=== PATIENT | female | born 1975 | race Caucasian/White ===

== ENCOUNTER 2023-03-29 16:18 | Outpatient (CLI) | payer BC, SELFPAY ==
[2023-03-29 16:34] LABS: Chloride 105 mmol/L (98-107); Potassium 4.3 mmoL/L (3.5-5.1); Sodium 138 mmol/L (136-145)
[2023-03-29 16:36] LABS: Alanine Aminotransferase 18 U/L (12-78); Aspartate Amino Transferase 25 U/L (14-36); Blood Urea Nitrogen 13 mg/dl (7-17); Estimated Glomerular Filt Rate 108 ml/min (>60); GFR (African American) 131 ML/MIN (>60)
[2023-03-29 16:37] LABS: Albumin Level 3.9 g/dl (3.5-5.0); Albumin/Globulin Ratio 1.3 (1.1-1.8); Alkaline Phosphatase 74 U/L (38-126); Anion Gap 11.3 mEq/L (5-15); Bilirubin,Total 0.7 mg/dl (0.2-1.3); Carbon Dioxide 26 mmol/L (22.0-30.0); Chol/HDL Ratio 3.9 (1-3.5); Cholesterol 178 mg/dl (140-200); Globulin 3.1 g/dL (1.3-3.2); Glucose 96 mg/dl (74-100); HDL Cholesterol 46 mg/dl (40-60); Triglycerides 115 mg/dl (30-150); VLDL Cholesterol 23 mg/dL (0-40)
[2023-03-29 16:43] LABS: Basophils % 0.4 % (0.1-2.0); Eosinophils # 0.1 K/mm3 (0.0-0.4); Eosinophils % 0.7 % (0.1-12.0); Hematocrit 34.6 % (37.0-47.0); Hemoglobin 11.9 g/dL (12.2-16.2); Lymphocytes # 3.4 K/mm3 (0.7-4.5); Lymphocytes % 30.2 % (10-50); Mean Corpuscular HGB Conc 34.4 g/dL (31.8-35.4); Mean Corpuscular Hemoglobin 29.5 pg (27.0-31.2); Mean Corpuscular Volume 85.9 fl (81-99); Mean Platelet Volume 8.8 fl (7.4-10.4); Monocytes # 0.5 K/mm3 (0.1-1.0); Monocytes % 4.1 % (1.7-9.3); Neutrophils # 7.2 K/mm3 (1.8-7.8); Neutrophils % 64.5 % (37.0-80.0); Platelet Count 331 K/mm3 (142-424); Red Blood Count 4.03 M/mm3 (4.20-5.40); Red Cell Distribution Width 13.7 % (11.5-17.5); White Blood Count 11.1 K/mm3 (4.8-10.8)
[2023-03-29 17:00] LABS: Triiodothryronine (T3) Uptake 34 % (23.5-40.5)
[2023-03-29 17:01] LABS: T4 (Thyroxine) 10.1 ug/dl (5.53-11.0)
[2023-03-29 18:00] LABS: Free T4 (Free Thyroxine) 1.64 ng/dl (0.78-2.19)
[2023-03-29 20:17] LABS: Hemoglobin A1C 5.3 % (4.0-6.0)
== END 2023-03-29 23:59 ==
LOC: LAB.DROPOF 16:19
PROVIDERS: PCP Nurse Practitioner Family; Visit Provider Nurse Practitioner Family
DX: E66.01 Morbid (severe) obesity due to excess calories (principal); Z68.43 Body mass index [BMI] 50.0-59.9, adult; R06.09 Other forms of dyspnea; Z86.79 Personal history of other diseases of the circulatory system
CPT/HCPCS: 80053; 80061; 83036; 84436; 84439; 84443; 84479; 85025

== ENCOUNTER 2023-05-06 09:56 | Outpatient (CLI) | payer BC, SELFPAY ==
--- NOTE | 2023-05-06 10:01 | MM_ITS ---
PROCEDURE INFORMATION: Exam: Bilateral Screening 3D Mammography Exam date and time: 05/06/2023 10:03 AM Age: 47 years old Clinical indication: Baseline screening mammogram TECHNIQUE: Imaging protocol: Bilateral Screening tomosynthesis and 2D mammography including computer-aided detection (CAD) when performed. COMPARISON: No relevant prior studies available. FINDINGS: MAMMOGRAPHY: Breast composition: There are scattered areas of fibroglandular density. Mass: 0.4 cm mass within the lower outer left middle 1/3 should be further assessed with spot views in CC/MLO projection. Ultrasound should also be performed. Architectural distortion: No new or suspicious architectural distortion. Calcifications: No new or suspicious calcifications are present Asymmetric density: No new or suspicious asymmetric density is present Skin thickening: None. Axillary adenopathy: None. IMPRESSION: 0.4 cm mass within the lower outer left middle 1/3 should be further assessed with spot views in CC/MLO projection. Ultrasound should also be performed. ASSESSMENT: BI-RADS category 0: Incomplete-need additional imaging evaluation
== END 2023-05-06 23:59 ==
LOC: RAD 09:56
PROVIDERS: PCP Nurse Practitioner Family; Visit Provider Nurse Practitioner Family
DX: Z12.31 Encounter for screening mammogram for malignant neoplasm of breast (principal)
CPT/HCPCS: 77063; 77067

== ENCOUNTER 2023-05-17 13:58 | Outpatient (CLI) | payer BC, SELFPAY ==
--- NOTE | 2023-05-17 13:59 | MM_ITS ---
PROCEDURE INFORMATION: Exam: US Left Breast, Complete MG Left Diagnostic Breast Tomosynthesis Exam date and time: 05/17/2023 1:53 PM Age: 47 years old Clinical indication: Patient recalled on the basis of a screening mammogram for further evaluation; Left breast; mass TECHNIQUE: Imaging protocol: Complete ultrasound of all four quadrants of the left breast and the retroareolar regions, including ultrasound of the axilla when performed. Left Diagnostic tomosynthesis and 2D mammography including computer-aided detection (CAD) when performed. Unilateral or bilateral exam. COMPARISON: MG MM DIG SCREENING MAMM BI W/CAD 05/06/2023 10:03 AM FINDINGS: MAMMOGRAPHY: Digital diagnostic spot compression views of the middle third of the left lower outer quadrant demonstrates a persistent 0.4 cm ovoid mass without associated distortion ULTRASOUND: Sonographic images of the left breast including the retroareolar region, all 4 quadrants and the axilla do not demonstrate any solid masses. 0.4 cm cyst in the 4 o'clock axis 4 cm from the nipple most closely corresponds to the mass on mammography. An additional 0.4 cm cyst is noted in the 5 o'clock axis 4 cm from the. No architectural distortion or acoustical shadowing. No skin thickening or axillary adenopathy. IMPRESSION: Mass on screening mammography corresponds to underlying cystic change sonographically. There is no mammographic evidence of malignancy.Annual bilateral mammographic screening is recommended unless otherwise clinically indicated. ASSESSMENT: BI-RADS Category 2: Benign.
== END 2023-05-17 23:59 ==
LOC: RAD 13:59
PROVIDERS: PCP Nurse Practitioner Family; Visit Provider Nurse Practitioner Family
DX: R92.8 Other abnormal and inconclusive findings on diagnostic imaging of breast (principal); N63.20 Unspecified lump in the left breast, unspecified quadrant
CPT/HCPCS: 76641; 77061; 77065; G0279

== ENCOUNTER 2023-10-18 10:40 | Outpatient (CLI) | payer BC, SELFPAY ==
[2023-10-18 16:34] LABS: Basophils % 0.4 % (0.1-2.0); Eosinophils % 0.4 % (0.1-12.0); Hematocrit 37.1 % (37.0-47.0); Hemoglobin 12.4 g/dL (12.2-16.2); Lymphocytes # 2.2 K/mm3 (0.7-4.5); Lymphocytes % 24.7 % (10-50); Mean Corpuscular HGB Conc 33.4 g/dL (31.8-35.4); Mean Corpuscular Hemoglobin 29.8 pg (27.0-31.2); Mean Corpuscular Volume 89.4 fl (81-99); Mean Platelet Volume 9.4 fl (7.4-10.4); Monocytes # 0.4 K/mm3 (0.1-1.0); Monocytes % 4.2 % (1.7-9.3); Neutrophils # 6.2 K/mm3 (1.8-7.8); Neutrophils % 70.3 % (37.0-80.0); Platelet Count 264 K/mm3 (142-424); Red Blood Count 4.15 M/mm3 (4.20-5.40); Red Cell Distribution Width 14.2 % (11.5-17.5); White Blood Count 8.8 K/mm3 (4.8-10.8)
[2023-10-18 17:21] LABS: Hemoglobin A1C 4.8 % (4.0-6.0)
[2023-10-18 17:26] LABS: Alanine Aminotransferase 17 U/L (12-78); Albumin Level 3.8 g/dl (3.5-5.0); Albumin/Globulin Ratio 1.2 (1.1-1.8); Alkaline Phosphatase 60 U/L (38-126); Anion Gap 11.6 mEq/L (5-15); Aspartate Amino Transferase 19 U/L (14-36); Bilirubin,Total 0.7 mg/dl (0.2-1.3); Blood Urea Nitrogen 17 mg/dl (7-17); Calcium 9.3 mg/dl (8.4-10.2); Carbon Dioxide 24 mmol/L (22.0-30.0); Chloride 110 mmol/L (98-107); Chol/HDL Ratio 3.6 (1-3.5); Cholesterol 174 mg/dl (140-200); Estimated Glomerular Filt Rate 133 ml/min (>60); GFR (African American) 161 ML/MIN (>60); Globulin 3.2 g/dL (1.3-3.2); Glucose 101 mg/dl (74-100); HDL Cholesterol 48 mg/dl (40-60); Potassium 3.6 mmoL/L (3.5-5.1); Sodium 142 mmol/L (136-145); Triglycerides 96 mg/dl (30-150); VLDL Cholesterol 19 mg/dL (0-40)
[2023-10-18 17:37] LABS: Direct LDL Cholesterol 90.99 mg/dL (100-129)
[2023-10-18 17:56] LABS: Thyroid Stimulating Hormone 1.31 uIU/mL (0.465-4.68)
== END 2023-10-18 23:59 | disposition home or self-care (01) ==
LOC: LAB.DROPOF 10-21 10:41
PROVIDERS: PCP Nurse Practitioner Family; Visit Provider Nurse Practitioner Family
DX: Z00.00 Encounter for general adult medical examination without abnormal findings (principal)
CPT/HCPCS: 80050; 80053; 80061; 83036; 84443; 85025

== ENCOUNTER 2024-07-27 15:11 | Outpatient (CLI) | payer BC, SELFPAY ==
[2024-07-27 15:39] LABS: Basophils % 0.3 % (0.1-2.0); Eosinophils # 0.1 Kmm3 (0.0-0.4); Eosinophils % 0.6 % (0.1-12.0); Hematocrit 32.7 % (37.0-47.0); Hemoglobin 11.1 g/dL (12.2-16.2); Immature Granulocytes # 0.04 10^3uL; Immature Granulocytes % 0.3 %; Lymphocytes # 3.1 K/mm3 (0.7-4.5); Lymphocytes % 26.5 % (10-50); Mean Corpuscular HGB Conc 33.9 g/dL (31.8-35.4); Mean Corpuscular Hemoglobin 30.8 pg (27.0-31.2); Mean Corpuscular Volume 90.8 fl (81-99); Mean Platelet Volume 9.8 fl (7.4-10.4); Monocytes # 0.6 K/mm3 (0.1-1.0); Monocytes % 5.4 % (1.7-9.3); Neutrophils # 7.9 K/mm3 (1.8-7.8); Neutrophils % 66.9 % (37.0-80.0); Nucleated Red Blood Cells # 0 10^3/uL; Nucleated Red Blood Cells % 0 %; Platelet Count 284 K/mm3 (142-424); Red Cell Distribution Width 12.5 % (11.5-17.5); Red Cell Distribution Width-SD 41.3 fL; White Blood Count 11.8 K/mm3 (4.8-10.8)
[2024-07-27 16:50] LABS: Thyroid Stimulating Hormone 1.31 uIU/mL (0.465-4.68)
[2024-07-28 08:12] LABS: Estradiol 9.4 pg/mL (.); FSH 6.5 mIU/mL (.); LH 4.3 mIU/mL (.); Progesterone <0.1 ng/mL (.)
== END 2024-07-27 23:59 | disposition home or self-care (01) ==
LOC: LAB 15:12
PROVIDERS: PCP Nurse Practitioner Family; Visit Provider Obstetrics & Gynecology
DX: N93.9 Abnormal uterine and vaginal bleeding, unspecified (principal); N95.1 Menopausal and female climacteric states; R61 Generalized hyperhidrosis
CPT/HCPCS: 36415; 82670; 83001; 83002; 84144; 84443; 85025

== ENCOUNTER 2024-08-05 14:54 | Outpatient (CLI) | payer BC, SELFPAY ==
--- NOTE | 2024-08-05 15:00 | US_ITS ---
PROCEDURE: US TRANSVAGINAL CLINICAL INDICATION: Needs for AUB COMPARISON: No exams were available for comparison FINDINGS: Transvaginal and transabdominal sonographic images of the pelvis were obtained. UTERUS: 11.6 cm x 8.3cmx 6.4cm anteverted with a combined endometrial thickness of 34.2mm. The basalis of the endometrium is irregular and there appear to be small tongues of endometrium into the myometrium. These tongues of endometrium are seen on images 5, 8, 16, 17, 55 There are 2 small nabothian cysts in the cervix. The largest measures 7.4 mm There are calcifications in the anterior uterus with posterior shadowing. LEFT OVARY: The left ovary is not visualized. There are 2 small cystic areas in the left adnexa that could be small hydatid of Morgagni measuring 1.1 cm and 0.8 cm respectively. RIGHT OVARY: Not visualized. Both ovaries are not visualized. There is no fluid in the cul-de-sac. IMPRESSION: 1. Anteverted, enlarged uterus. The endometrium is heterogenous and markedly thickened. There are irregular areas along the basalis of the endometrium. Within the anterior myometrium are calcifications with posterior shadowing. 2. The endometrium is suspicious for endometrial carcinoma or hyperplasia. Suggest endometrial sampling. 3. Left and right ovary were not visualized. Transabdominal approach was performed but the ovaries could not be seen. 4. There are 2 small, simple hypoechoic areas in the left adnexa that could be hydatid of Morgagni. 5. No fluid in the cul-de-sac. Dictated by: Gustabo Carroll MD 08/06/2024 07:07 Gustabo Carroll MD in OV 08/06/2024 07:07
== END 2024-08-05 23:59 | disposition home or self-care (01) ==
LOC: RAD 14:54
PROVIDERS: PCP Nurse Practitioner Family; Visit Provider Obstetrics & Gynecology
DX: N85.2 Hypertrophy of uterus (principal); N85.8 Other specified noninflammatory disorders of uterus; R93.89 Abnormal findings on diagnostic imaging of other specified body structures
CPT/HCPCS: 76830

== ENCOUNTER 2024-08-18 10:47 | Outpatient (CLI) | payer BC, SELFPAY ==
[2024-08-18 10:59] VITALS: BMI 38.0
--- NOTE | 2024-08-18 11:15 | ECG_ITS ---
APPROVED REPORT Exam: Resting ECG HR:70 bpm ECG Measurements Heart Rate 70 AXES WI 158 P 55 QRSd 93 QRS 70 QT 346 T 30 QTc 366 Conclusion SINUS RHYTHM NONSPECIFIC T-WAVE ABNORMALITY BORDERLINE ECG UNCONFIRMED REPORT Electronically signed by : Ranjit Friedman MD 08/20/2024 08:38:08
[2024-08-18 11:32] LABS: Basophils % 0.4 % (0.1-2.0); Eosinophils # 0.1 Kmm3 (0.0-0.4); Eosinophils % 0.8 % (0.1-12.0); Hemoglobin 11.1 g/dL (12.2-16.2); Immature Granulocytes # 0.02 10^3uL; Immature Granulocytes % 0.2 %; Lymphocytes # 2.4 K/mm3 (0.7-4.5); Lymphocytes % 24.5 % (10-50); Mean Corpuscular HGB Conc 32.6 g/dL (31.8-35.4); Mean Corpuscular Hemoglobin 29.8 pg (27.0-31.2); Mean Corpuscular Volume 91.2 fl (81-99); Mean Platelet Volume 9.9 fl (7.4-10.4); Monocytes # 0.6 K/mm3 (0.1-1.0); Monocytes % 6.5 % (1.7-9.3); Neutrophils # 6.6 K/mm3 (1.8-7.8); Neutrophils % 67.6 % (37.0-80.0); Nucleated Red Blood Cells # 0 10^3/uL; Nucleated Red Blood Cells % 0 %; Platelet Count 288 K/mm3 (142-424); Red Blood Count 3.73 M/mm3 (4.20-5.40); Red Cell Distribution Width 11.8 % (11.5-17.5); White Blood Count 9.7 K/mm3 (4.8-10.8)
[2024-08-18 11:33] LABS: Albumin Level 3.9 g/dl (3.5-5.0); Chloride 109 mmol/L (98-107); Potassium 4.2 mmoL/L (3.5-5.1); Sodium 139 mmol/L (136-145)
[2024-08-18 11:36] LABS: Alanine Aminotransferase 104 U/L (12-78); Albumin/Globulin Ratio 1.2 (1.1-1.8); Alkaline Phosphatase 54 U/L (38-126); Anion Gap 10.2 mEq/L (5-15); Aspartate Amino Transferase 77 U/L (14-36); Bilirubin,Total 0.4 mg/dl (0.2-1.3); Blood Urea Nitrogen 11 mg/dl (7-17); Carbon Dioxide 24 mmol/L (22.0-30.0); Creatinine Clearance Estimated 189 mL/min (50-200); Estimated Glomerular Filt Rate 90 ml/min (>60); GFR (African American) 109 ML/MIN (>60); Globulin 3.3 g/dL (1.3-3.2); Total Protein,Serum 7.2 g/dl (6.3-8.2)
[2024-08-18 11:37] LABS: Glucose 100 mg/dl (74-100)
[2024-08-18 11:57] LABS: HCG Qualitative, Serum Negative (Negative)
== END 2024-08-18 23:59 | disposition home or self-care (01) ==
LOC: PREOP 10:47
PROVIDERS: PCP Nurse Practitioner Family; Visit Provider Obstetrics & Gynecology
DX: Z01.810 Encounter for preprocedural cardiovascular examination (principal); Z01.812 Encounter for preprocedural laboratory examination; R94.31 Abnormal electrocardiogram [ECG] [EKG]
CPT/HCPCS: 80053; 84703; 85025; 93005

== ENCOUNTER 2024-08-25 06:05 | Day surgery (SDC) | payer BC, SELFPAY ==
[2024-08-18 13:04] VITALS: BMI 38.0
[2024-08-25] VITALS (11 sets, daily range): BP systolic 107–139; BP diastolic 63–87; PULSE 64–78; RESP 14–17; TEMP 36.1–36.4; O2SAT 97–100; BMI 38.0
[2024-08-25] MEDS: LACTATED RINGERS 1000ML 1,000 ML 25 ML IV (06:43)
[2024-08-25] MEDS: ACETAMINOPHEN 500MG TAB 1000 MG PO (06:44)
[2024-08-25 07:06] LABS: Chloride 113 mmol/L (98-107); Potassium 4.5 mmoL/L (3.5-5.1); Sodium 142 mmol/L (136-145)
[2024-08-25 07:09] LABS: Alanine Aminotransferase 80 U/L (12-78); Albumin/Globulin Ratio 1.1 (1.1-1.8); Alkaline Phosphatase 37 U/L (38-126); Anion Gap 9.5 mEq/L (5-15); Aspartate Amino Transferase 52 U/L (14-36); Bilirubin,Total 0.6 mg/dl (0.2-1.3); Blood Urea Nitrogen 13 mg/dl (7-17); Carbon Dioxide 24 mmol/L (22.0-30.0); Creatinine Clearance Estimated 125 mL/min (50-200); Estimated Glomerular Filt Rate 107 ml/min (>60); GFR (African American) 130 ML/MIN (>60); Globulin 3.7 g/dL (1.3-3.2); Glucose 109 mg/dl (74-100); Total Protein,Serum 7.7 g/dl (6.3-8.2)
--- NOTE | 2024-08-25 07:16 | EXP.ANES.CKL ---
[facility] Disclaimer: The information contained in this section may have been updated after the patient was seen, as this information can be updated by other users. Medical History Endometrial thickening on ultrasound Abnormal uterine bleeding No significant past medical history Surgical History History of Social History (Updated 08/25/24 @ 06:29 by Nelly Genao RN) Smoking Status: Former smoker years smoked: 10 smoking status stop date: 2006 alcohol intake: never substance use type: denies use current occupational status: employed Travel in the last 8 weeks?: Inside the [place] household members: spouse and children housing: house Have you lived/traveled outside US in past 30 days?: No Contact w/someone who lives/traveled outside US past 30 days?: No Exposure to someone with infectious disease in past 14 days?: No Do you have a fever (greater than 100.4 F or 38 C)?: No Have you tested positive for COVID-19?: No Exposed to someone with COVID-19 in past 14 days?: No Do you have a sore throat?: No Do you have a cough?: No Do you have any weakness?: No Are you experiencing any nausea/vomitting?: No Do you have any diarrhea?: No Are you experiencing any unusual bleeding?: No Do you have any muscle aches/pain?: No Do you have any abdominal pain?: No Are you experiencing loss of taste or smell?: No [facility] Anesthesia Checklist Patient Identification Patient Identification: Arm Band Structural Data Admitted From: Home Planned Operative Procedure/s: Hysteroscopy, D&C, Consent for Planned Operative Procedure(s) Verified: Yes Verified Documents: Surgical Consent and History and Physical NPO Status Verified Time NPO: 00:00 Additional verifications Anesthesia Reactions: No Hx Blood Transfusions: No Blood Transfusion Reaction: No Airway Assessment Mallampati Score:: Class II C-Spine Mobility Assessed: Yes TMJ Mobility Assessed: Yes Dentition: Good Dentition Neurological Assessment Level of Consciousness: Awake, Alert and Appropriate Anesthesia Plan Anesthesia Risk discussed: Yes Anesthesia Plan: Verified ASA Class: II Anesthesia Type: General
--- NOTE | 2024-08-25 08:27 | EXP.ANES.I ---
[facility] Anesthesia Record Part I Anesthesia Record I Intake, IV Amount: 500 Hydration: Adequate Estimated blood loss (mL): 15 Urine output (mL): 0 Blood Products used (#): none Blood Pressure: 107/71 SaO2: 97 Pulse Rate: 75 Airway Patency: Patent Respiratory Rate: 14 Temperature: 97.5 F Patient is:: Drowsy and Stable Stable to PACU at:: 08:21
--- NOTE | 2024-08-25 08:50 | EXP.OP.NOTE ---
Date of procedure: 08/25/24 Pre-op Diagnosis:: 1. Abnormal uterine bleeding 2. Thickened endometrium Post-op Diagnosis:: 1. Abnormal uterine bleeding 2. Thickened endometrium Procedure performed:: Hysteroscopy, dilation and curettage with Myosure curettage Surgeon:: Nanette Samaniego DO Social Security Assessor(s):: N/a SUPERVISOR REFRACTORY PRODUCTS:: Carl Alberts Anesthesia: GETA Estimated blood loss (mL): 15 Clinical Note:: Mrs. Nedra Mitchell is a 49 yo P3003 who presents to [facility] for scheduled procedure. She complains of abnormal uterine bleeding. She started bleeding the beginning of June. By the end of the first week of June her bleeding was very heavy. She bled the whole month of June with bleeding waxing and waning. She went to her PCP on 07/23 because bleeding was so heavy she was soaking through a tampon, pad and her clothing. She was started on Aygestin protocol. Prior to this bleeding she had not had a period in 18-24 months. She admits to hot flashes and night sweats. She thought she had gone through menopause. She is on Wegovy and has lost about 80 lbs in the past 4 months. She is currently taking Norethindrone 5 mg q 8 hours. She admits she is spotting. No lightheadedness or dizziness. She feels well otherwise. History of x 3. Pelvic ultrasound 08/05/24 demonstrated anteverted, enlarged uterus. The endometrium is heterogenous and markedly thickened. There are irregular areas along the basalis of the endometrium. Within the anterior myometrium are calcifications with posterior shadowing. 2. The endometrium is suspicious for endometrial carcinoma or hyperplasia. Suggest endometrial sampling. 3. Left and right ovary were not visualized. Transabdominal approach was performed but the ovaries could not be seen. 4. There are 2 small, simple hypoechoic areas in the left adnexa that could be hydatid of Morgagni. 5. No fluid in the cul-de-sac. Operative findings:: 1. On bimanual exam, uterus enlarged, midposition, No adnexal masses palpated 2. On hysteroscopic exam, large amount of abnormal apperaing endometrial tissue with calcifications and increased vascularity. Tubal ostia not visualized secondary to obscurring endometrial tissue Operative note:: Risks, benefits and alternatives were discussed with the patient. Risks include but are not limited to bleeding, infection, uterine perforation and VTE. Patient voiced understanding and agreed to proceed. She was wheeled back to the operating room and placed under general anesthesia without difficulty. She was placed in dorsal lithotomy position and prepped and draped in the normal sterile fashion. Straight catheter was used to drain the bladder. A bimanual exam was performed. A weighted Auvard was placed in the vaginal vault. Single tooth tenaculum was placed on anterior lip of the cervix. Uterus sounded to 12. Sequential Florencio dilators were used to dilate the cervical os. Hysteroscope was tested inserted through the cervix without difficulty. Endometrial cavity was evaluated. See findings above. Pictures were taken. Myosure was inserted through the Hysteroscope. Myosure curettage was performed under direct visualization per protocol. The endometrial cavity was curetted with a systematic [id number] movement of the curette so that all possible endometrium was sampled. Endometrial curettings will be sent to pathology for review.?In addition, a medium size sharp curette was inserted through the cervix into the uterine cavity and endometrium was curetted with a systematic back and forth movement in a 360 degree manner. All endometrial curettings will be sent to pathology for review. Instruments were removed from the vagina. Tenaculum site was hemostatic. Patient was awaken from anesthesia without difficulty. She was transported to recovery room in stable condition. Patient will be discharged home when awake and ambulating. She was given postop instructions as well as instructions to follow-up in the office in 2 weeks. Will call patient with pathology results. Condition: stable Disposition: same day Specimens:: 1. Endometrial curettings Complications:: None
--- NOTE | 2024-08-25 09:45 | P.PNANES_ITS ---
[facility] Anesthesia Record Part II Anesthesia Record Part II Discharge Time: 08:50 Destination: Surgical Day Care (OP Surgery) PACU nurse assessment reviewed?: Yes Patient Condition:: Good Anesthesia Complications:: None Swallowing reflex intact?: Yes Airway Patency: Patent Cyanosis?: No Blood Pressure: 124/77 SaO2: 99 Respiratory Rate: 16 Pulse Rate: 69 Temperature: 97.5 F Mental Status: Alert & Oriented Pain level:: 0 Nausea and/or vomitting:: None Intake, IV Amount: 0 Hydration: Adequate
== END 2024-08-25 09:44 | disposition home or self-care (01) ==
PROVIDERS: PCP Nurse Practitioner Family; Visit Provider Obstetrics & Gynecology
PROC: (CPT 58558; principal; 2024-08-25 07:30)
DX: N71.0 Acute inflammatory disease of uterus (principal); E66.3 Overweight; N71.1 Chronic inflammatory disease of uterus; N85.2 Hypertrophy of uterus; N93.9 Abnormal uterine and vaginal bleeding, unspecified; Z79.3 Long term (current) use of hormonal contraceptives; Z88.0 Allergy status to penicillin; Z79.85 Long-term (current) use of injectable non-insulin antidiabetic drugs; Z98.891 History of uterine scar from previous surgery; Z87.891 Personal history of nicotine dependence; Z98.51 Tubal ligation status; Z68.38 Body mass index [BMI] 38.0-38.9, adult
CPT/HCPCS: 58558; 80053; J1100; J1885; J2003; J2250; J2405; J2704; J3010; J7120

== ENCOUNTER 2024-10-20 11:36 | Outpatient (CLI) | payer BC, SELFPAY ==
[2024-10-20 08:37] VITALS: BMI 38.1
--- OUTSIDE RECORDS SUMMARY | 2024-10-20 11:38 | XMS_ITS | Clinical Summary ---
[facility] Address [address] [place] [address] Care Team Providers Care Senior Bioinformatics Scientist Name Role Phone Provider, No Known Primary Care Provider Unavail able Allergies Active Allergy Reactions Criticality Noted Date Comments Penicillins Hives Medium 03/04/2016 Medications No known medications Active Problems No known active problems Family History Medical History Relation Name Comments No Known Problems Father No Known Problems Mother Relation Name Status Comments Father Alive Mother Alive Social History Tobacco Use Types Packs/Day Years Used Date Smoking Tobacco: Former Cigarettes 0.3 10 Abuse Screen Answer Date Recorded Unsafe at Home or Work/School Not on file Feels Threatened by Someone? Not on file 11/2022 Does Anyone Keep You from Co ntacting Others or Doint Things Outside the Home? Not on file 12/24/2022 Physical Sign of Abuse Present Not on file 1 Housing Stability Answer Date Recorded Current Living Arrangements Not on file 11/2022 Potentially Unsafe Housing Conditions Not on shyam e 12/24/2022 Family and Community Support Answer Manuel e Recorded Help with Day-to-Day Activities Not on file 12/24/2022 Lonely or Isolated Not on file 12/24/2022 Employment Answer Date Recorded Do you want help finding or keeping work or a chad b? Not on file 12/24/2022 Disabilities Answer Date Recorded Concentrating, Remembering, or Making Decisions Difficulty Not on file 12/24/2022 Doing Errands Independently Difficulty Not on fi le 12/24/2022 Education Answer Date Recorded Help with school or training? Not on file Preferred Language Not on file 12/24/2022 Comments Unknown Sex and Gender Information Value Date Recorded Sex Assigned at Not on file Legal Sex Female 12:33 PM EDT Gender Identity Not on file Sexual Orientation Not on file Last Filed Vital Signs Vital Sign Reading Time Taken Comments Blood Pressure 120/70 03/18/2019 12:40 PM EST Pulse 92 03/18/2019 12:40 PM EST Temperature 37.1 C (98.8 F) 03/18/2019 12:40 PM EST Respiratory Rate 16 03/18/2019 12:40 PM EST Oxygen Saturation 98% 03/18/2019 12:40 PM EST Inhaled Oxygen Concentration - - Weight 141 kg (311 lb) 03/18/2019 12:40 PM EST Height 177.8 cm (5' 10 ) 03/18/2019 12:40 PM EST Body Mass Index 44.62 03/18/2019 12:40 PM EST Plan of Treatment Health Maintenance Due Date Last Done Comments TDAP/TD VACCINES (1 - Tdap) 1996 Annual Gynecologic Pelvic an d Breast Exam 10/22/2015 10/20/2014 MAMMOGRAM 2017 ANNUAL PHYSICAL 03/18/2019 HEPATITIS C SCREENING 03/18/2019 COLOGUARD 2022 COLON CANCER SCREENING 5 YEA R SIGMOIDOSCOPY 2022 COLONOSCOPY 2022 COLORECTAL CANCER SCREENING 2022 CT COLONOGRAPHY 2022 FECAL OCCULT BLOOD TEST 2022 FIT Testing (1 year) 2022 COVID-19 Vaccine ( - 2023-2 5 season) 2023 INFLUENZA VACCINE 12/16/2024 Pneumococcal Vaccine 0-49 Aged Out No longer eligible based on patient's age to complete this topic Procedures Procedure Name Priority Date/Time Associated Diagnosis Comments SCANNED - PAP SMEAR 10/20/2014 from Last 3 Months or Most Recently Relevant to Health Maintenance Results * SCANNED - PAP SMEAR (10/20/2014) Himanshu Gamboa MD CHART REVIEW TABS Final Resul t from Last 3 Months or Most Recently Relevant to Health Maintenance Insurance [employer]OYEE Care Teams Senior Bioinformatics Scientist Relationship Specialty Start Date End Date Provider, [place] [address] PCP - General 10/28/14
[2024-10-20 12:22] LABS: Hematocrit 34.6 % (37.0-47.0); Hemoglobin 11.4 g/dL (12.2-16.2); Immature Granulocytes % 0.4 %; Mean Corpuscular HGB Conc 32.9 g/dL (31.8-35.4); Mean Corpuscular Hemoglobin 28.9 pg (27.0-31.2); Mean Corpuscular Volume 87.6 fl (81-99); Nucleated Red Blood Cells % 0 %; Platelet Count 327 K/mm3 (142-424); Red Blood Count 3.95 M/mm3 (4.20-5.40); Red Cell Distribution Width-SD 39.4 fL; White Blood Count 8.5 K/mm3 (4.8-10.8)
[2024-10-20 12:46] LABS: Anion Gap 9.2 mEq/L (5-15); Blood Urea Nitrogen 10 mg/dl (7-17); Calcium 9.2 mg/dl (8.4-10.2); Carbon Dioxide 24 mmol/L (22.0-30.0); Chloride 108 mmol/L (98-107); Creatinine Clearance Estimated 221 mL/min (50-200); Creatinine,Serum 0.60 mg/dl (0.52-1.04); Estimated Glomerular Filt Rate 107 ml/min (>60); GFR (African American) 130 ML/MIN (>60); Glucose 90 mg/dl (74-100); Potassium 4.2 mmoL/L (3.5-5.1); Sodium 137 mmol/L (136-145)
[2024-10-20 13:13] LABS: HCG Qualitative, Serum Negative (Negative)
== END 2024-10-20 23:59 | disposition home or self-care (01) ==
LOC: PREOP 11:36
PROVIDERS: PCP Nurse Practitioner Family; Visit Provider Obstetrics & Gynecology
DX: Z01.812 Encounter for preprocedural laboratory examination (principal)
CPT/HCPCS: 80048; 84703; 85025

== ENCOUNTER 2024-10-26 06:07 | Day surgery (SDC) | payer BC, SELFPAY ==
--- NOTE | 2024-10-20 12:14 | SUR.PREOP ---
Instructed pt to hold Ozempic until after procedure and clear liquids the day before procedure.
[2024-10-21 05:51] VITALS: BMI 38.1
[2024-10-26] VITALS (9 sets, daily range): BP systolic 118–130; BP diastolic 63–86; PULSE 72–85; RESP 14–18; TEMP 36.4–38; O2SAT 96–100
[2024-10-26] MEDS: ACETAMINOPHEN 500MG TAB 1000 MG PO (06:22)
[2024-10-26] MEDS: LACTATED RINGERS 1000ML 1,000 ML 25 ML IV (06:23)
--- NOTE | 2024-10-26 07:09 | P.PNANES_ITS ---
[facility] Disclaimer: The information contained in this section may have been updated after the patient was seen, as this information can be updated by other users. Medical History Endometrial thickening on ultrasound Abnormal uterine bleeding No significant past medical history Surgical History History of bilateral tubal ligation History of D&C History of hysteroscopy History of Social History Smoking Status: Former smoker years smoked: 10 smoking status stop date: 2006 alcohol intake: never substance use type: denies use current occupational status: employed Travel in the last 8 weeks?: [place] the [place] household members: spouse and children housing: house Have you lived/traveled outside US in past 30 days?: No Contact w/someone who lives/traveled outside US past 30 days?: No Exposure to someone with infectious disease in past 14 days?: No Do you have a fever (greater than 100.4 F or 38 C)?: No Have you tested positive for COVID-19?: No Exposed to someone with COVID-19 in past 14 days?: No Do you have a sore throat?: No Do you have a cough?: No Do you have any weakness?: No Do you have any diarrhea?: No Are you experiencing any unusual bleeding?: No Do you have any muscle aches/pain?: No Do you have any abdominal pain?: No Are you experiencing loss of taste or smell?: No [facility] Anesthesia Checklist Patient Identification Patient Identification: Arm Band and Verbal (Name & ) Structural Data Admitted From: Home Planned Operative Procedure/s: Hysteroscopy/D&C Verified Documents: Surgical Consent NPO Status Verified Time NPO: 00:00 Additional verifications Anesthesia Reactions: No Hx Blood Transfusions: No Blood Transfusion Reaction: No Airway Assessment Mallampati Score:: Class II Dentition: Good Dentition Neurological Assessment Level of Consciousness: Awake, Alert and Appropriate Anesthesia Plan Anesthesia Risk discussed: Yes Anesthesia Plan: Verified ASA Class: II Anesthesia Type: General
[2024-10-26] MEDS: SODIUM CHLORIDE IRRIG SOLUTION 3,000 ML 200 ML IR (08:00)
--- NOTE | 2024-10-26 08:26 | P.PNANES_ITS ---
[facility] Anesthesia Record Part I Anesthesia Record I Intake, IV Amount: 400 Hydration: Adequate Estimated blood loss (mL): 15 Urine output (mL): 0 Blood Products used (#): none Blood Pressure: 130/73 SaO2: 96 Pulse Rate: 75 Airway Patency: Patent Respiratory Rate: 14 Temperature: 97.8 F Patient is:: Awake, Drowsy and Stable Stable to PACU at:: 08:13
--- NOTE | 2024-10-26 08:29 | EXP.OP.NOTE ---
Date of procedure: 10/26/24 Pre-op Diagnosis:: 1. Abnormal uterine bleeding 2. Enlarged uterus Post-op Diagnosis:: 1. Abnormal uterine bleeding 2. Enlarged uterus Procedure performed:: 1. Hysteroscopy, dilation and curettage 2. Attempted Novasure endometrial ablation. Novasure device would not activate secondary to large cavity Surgeon:: Nanette Samaniego DO Food Service Associate(s):: N/a SNOW FENCE ERECTOR:: Carl Alberts Anesthesia: GETA Estimated blood loss (mL): 20 Clinical Note:: Mrs Nedra Mitchell is a 49 yo P3003. She complains of abnormal uterine bleeding since June. She is taking Norethindrone and admits to continued bleeding. Sometimes bleeding will increase while taking the Norethindrone and she will increase her dose temporarily until bleeding lightens again. She had a D&C August 25/2025. Pathology demonstrated acute and chronic endometritis. Negative for hyperplasia and malignancy. She completed course of doxcycline. She would like to proceed with endometrial ablation. History of x 3. History of tubal ligation with last . Operative findings:: 1. On bimanual exam, uterus enlarged and midposition. No adnexal masses palpated 2. On hysteroscopic exam, bilateral tubal ostia not easily visualized secondary to endomterial tissue. Moderate amount of endometrial tissue present within the cavity. Failed Novasure ablation attempt suspect secondary to large uterine cavity. Should patient desire definitive surgical intervention would recommend abdominal hysterectomy. Operative note:: Risks, benefits and alternatives were discussed with the patient. Risks include but are not limited to bleeding, infection, uterine perforation and VTE. Patient voiced understanding and agreed to proceed. She was wheeled back to the operating room and placed under general anesthesia without difficulty. She was placed in dorsal lithotomy position and prepped and draped in the normal sterile fashion. Straight catheter was used to drain the bladder. A bimanual exam was performed. A weighted Auvard was placed in the vaginal vault. Single tooth tenaculum was placed on anterior lip of the cervix. Uterus sounded to 13. Sequential Florencio dilators were used to dilate the cervical os. Hysteroscope was tested inserted through the cervix without difficulty. Endometrial cavity was evaluated. See findings above. Pictures were taken. A medium size sharp curette was inserted through the cervix into the uterine cavity and endometrium was curetted with a systematic back and forth movement in a 360 degree manner. Endometrial curettings will be sent to pathology for review. Novasure sure sound was used to obtain uterine length. Uterus measured 6.5+ cm in length and 3.7 cm in cavity width. Novasure device was inserted and would not activate secondary to failed cavity assessment x 2 attempts. Suspect large cavity size as reason for failed assessment. Novasure device was removed. Instruments were removed from the vagina. Tenaculum site was noted to be hemostatic. Patient was awaken from anesthesia without difficulty. She was transported to recovery room in stable condition. Patient will be discharged home when awake and ambulating. She was given postop instructions as well as instructions to follow-up in the office in 2 weeks. Condition: stable Disposition: same day Specimens:: 1. Endometrial curettings Complications:: None
--- NOTE | 2024-10-26 11:20 | EXP.ANES.II ---
[facility] Anesthesia Record Part II Anesthesia Record Part II Discharge Time: 08:43 Destination: Surgical Day Care (OP Surgery) PACU nurse assessment reviewed?: Yes Patient Condition:: Good Anesthesia Complications:: None Swallowing reflex intact?: Yes Airway Patency: Patent Cyanosis?: No Blood Pressure: 126/86 SaO2: 98 Respiratory Rate: 16 Pulse Rate: 74 Temperature: 97.8 F Mental Status: Alert & Oriented Pain level:: 0 Nausea and/or vomitting:: None Intake, IV Amount: 0 Hydration: Adequate
== END 2024-10-26 09:13 | disposition home or self-care (01) ==
PROVIDERS: PCP Family Medicine; Visit Provider Obstetrics & Gynecology
PROC: (CPT 58558; principal; 2024-10-26 07:30)
DX: N93.9 Abnormal uterine and vaginal bleeding, unspecified (principal); N85.2 Hypertrophy of uterus; Z87.891 Personal history of nicotine dependence; Z88.1 Allergy status to other antibiotic agents
CPT/HCPCS: 58558; J1100; J2003; J2250; J2405; J2704; J3010; J7120

== ENCOUNTER 2024-12-29 10:29 | Outpatient (CLI) | payer BC, SELFPAY ==
[2024-12-29 08:59] VITALS: BMI 39.6
--- OUTSIDE RECORDS SUMMARY | 2024-12-29 10:32 | XMS_ITS | Clinical Summary ---
[facility] Address [address] [place] [address] Care Team Providers Care Clerk Of Court Name Role Phone Provider, No Known Primary [...] TEST 2022 FIT Testing (1 year) 2022 INFLUENZA VACCINE 10/16/2024 Pneumococcal Vaccine 0-49 Aged Out No longer [...] Most Recently Relevant to Health Maintenance Insurance [employer] EM[employer]OYEE Care Teams Clerk Of Court Relationship Specialty Start Date End Date Provider, [place] [address] PCP - General 10/28/14
--- NOTE | 2024-12-29 10:49 | ECG_ITS ---
APPROVED REPORT Exam: Resting ECG HR:61 bpm ECG Measurements Heart Rate 61 AXES ND 153 P 58 QRSd 97 QRS 73 QT 356 T 37 QTc 358 Conclusion SINUS RHYTHM NORMAL ECG UNCONFIRMED REPORT Electronically signed by : Ranjit Friedman MD 01/01/2025 22:00:51
[2024-12-29 11:04] LABS: HCG Qualitative, Serum Negative (Negative)
[2024-12-29 11:05] LABS: Albumin Level 3.7 g/dl (3.5-5.0); Chloride 103 mmol/L (98-107); Potassium 4.0 mmoL/L (3.5-5.1); Sodium 137 mmol/L (136-145)
[2024-12-29 11:08] LABS: Alanine Aminotransferase 24 U/L (12-78); Albumin/Globulin Ratio 1.1 (1.1-1.8); Alkaline Phosphatase 48 U/L (38-126); Anion Gap 12.0 mEq/L (5-15); Aspartate Amino Transferase 21 U/L (14-36); Bilirubin,Total 0.4 mg/dl (0.2-1.3); Blood Urea Nitrogen 11 mg/dl (7-17); Carbon Dioxide 26 mmol/L (22.0-30.0); Creatinine Clearance Estimated 172 mL/min (50-200); Creatinine,Serum 0.80 mg/dl (0.52-1.04); Estimated Glomerular Filt Rate 77 ml/min (>60); GFR (African American) 93 ML/MIN (>60); Globulin 3.3 g/dL (1.3-3.2); Total Protein,Serum 7.0 g/dl (6.3-8.2)
[2024-12-29 11:09] LABS: Calcium 8.4 mg/dl (8.4-10.2); Glucose 92 mg/dl (74-100)
[2024-12-29 11:21] LABS: Hematocrit 36.2 % (37.0-47.0); Hemoglobin 11.6 g/dL (12.2-16.2); Immature Granulocytes % 0.3 %; Mean Corpuscular HGB Conc 32.0 g/dL (31.8-35.4); Mean Corpuscular Hemoglobin 27.6 pg (27.0-31.2); Mean Corpuscular Volume 86.0 fl (81-99); Nucleated Red Blood Cells % 0 %; Platelet Count 320 K/mm3 (142-424); Red Blood Count 4.21 M/mm3 (4.20-5.40); Red Cell Distribution Width-SD 42.1 fL; White Blood Count 9.3 K/mm3 (4.8-10.8)
== END 2024-12-29 23:59 | disposition home or self-care (01) ==
LOC: PREOP 10:30
PROVIDERS: PCP Nurse Practitioner Family; Visit Provider Obstetrics & Gynecology
DX: Z01.810 Encounter for preprocedural cardiovascular examination (principal); Z01.812 Encounter for preprocedural laboratory examination
CPT/HCPCS: 80053; 84703; 85025; 93005

== ENCOUNTER 2025-01-04 06:16 | Inpatient (IN) | payer BC, SELFPAY ==
[2024-12-29 12:06] VITALS: BMI 39.4
[2025-01-04] VITALS (22 sets, daily range): BP systolic 105–141; BP diastolic 37–78; PULSE 60–84; RESP 16–20; TEMP 36.3–38; O2SAT 98–100
[2025-01-04] MEDS: CELECOXIB 100MG CAPSULE 400 MG PO (06:22)
[2025-01-04] MEDS: GABAPENTIN 600MG TABLET 600 MG PO (06:22)
[2025-01-04] MEDS: ACETAMINOPHEN 500MG TAB 1000 MG PO ×3 (06:23→20:40)
[2025-01-04] MEDS: LACTATED RINGERS 1000ML 1,000 ML 25 ML IV (06:24)
--- NOTE | 2025-01-04 07:07 | P.PNANES_ITS ---
[facility] Disclaimer: The information contained in this section may have been updated after the patient was seen, as this information can be updated by other users. Medical History Endometrial thickening on ultrasound Abnormal uterine bleeding Surgical History History of bilateral tubal ligation History of D&C History of hysteroscopy History of Social History (Updated 01/04/25 @ 06:26 by Amara Matthew RN) Smoking Status: Former smoker years smoked: 10 smoking status stop date: 2006 alcohol intake: never substance use type: denies use current occupational status: employed Travel in the last 8 weeks?: Inside the [place] household members: spouse and children housing: house Have you lived/traveled outside US in past 30 days?: No Contact w/someone who lives/traveled outside US past 30 days?: No Exposure to someone with infectious disease in past 14 days?: No Do you have a fever (greater than 100.4 F or 38 C)?: No Have you tested positive for COVID-19?: No Exposed to someone with COVID-19 in past 14 days?: No Do you have a sore throat?: No Do you have a cough?: No Do you have any weakness?: No Are you experiencing any nausea/vomitting?: No Do you have any diarrhea?: No Are you experiencing any unusual bleeding?: No Do you have any muscle aches/pain?: No Do you have any abdominal pain?: No Are you experiencing loss of taste or smell?: No [facility] Anesthesia Checklist Patient Identification Patient Identification: Arm Band Structural Data Admitted From: Home Planned Operative Procedure/s: Total Abdominal Hysterectomy Consent for Planned Operative Procedure(s) Verified: Yes Verified Documents: Surgical Consent and History and Physical NPO Status Verified Time NPO: 05:00 (Gatorade) Additional verifications Anesthesia Reactions: No Hx Blood Transfusions: No Blood Transfusion Reaction: No Airway Assessment Mallampati Score:: Class II C-Spine Mobility Assessed: Yes TMJ Mobility Assessed: Yes Dentition: Good Dentition Neurological Assessment Level of Consciousness: Awake, Alert and Appropriate Anesthesia Plan Anesthesia Risk discussed: Yes Anesthesia Plan: Verified ASA Class: II Anesthesia Type: General w/block (with Bilateral TAP Block)
--- NOTE | 2025-01-04 07:27 | P.HP_ITS ---
History of Present Illness *Admission Date: 01/04/25 *Reason for visit:: Abnormal uterine bleeding *History of present illness: Mrs Nedra Mitchell is a 49 yo [id number] who presents to [facility] for scheduled surgery. She complains of abnormal uterine bleeding since June. She is taking Norethindrone and admits to continued bleeding. Sometimes bleeding will increase while taking the Norethindrone and she will increase her dose temporarily until bleeding lightens again. She had a D&C August 25/2025. Pathology demonstrated acute and chronic endometritis. Negative for hyperplasia and malignancy. She completed course of doxcycline. She desired endometrial ablation. On 10/26 she underwent hysteroscopy, dilation and curettage, attempted Novasure endometrial ablation. Novasure device would not activate secondary to large cavity. She is still bleeding. Bleeding is managed with Norethindrone. She is requesting definitive surgical intervention with hysterectomy. Pelvic ultrasound 08/05/24 demonstrated anteverted, enlarged uterus. The endometrium is heterogenous and markedly thickened. There are irregular areas along the basalis of the endometrium. Within the anterior myometrium are calcifications with posterior shadowing. 2. The endometrium is suspicious for endometrial carcinoma or hyperplasia. Suggest endometrial sampling. 3. Left and right ovary were not visualized. Transabdominal approach was performed but the ovaries could not be seen. 4. There are 2 small, simple hypoechoic areas in the left adnexa that could be hydatid of Morgagni. 5. No fluid in the cul-de-sac. History of x 3. History of tubal ligation with last . [facility] Disclaimer: The information contained in this section may have been updated after the patient was seen, as this information can be updated by other users. Medical History Endometrial thickening on ultrasound Abnormal uterine bleeding Surgical History History of bilateral tubal ligation History of D&C History of hysteroscopy History of Social History (Updated 01/04/25 @ 06:26 by Amara Matthew RN) Smoking Status: Former smoker years smoked: 10 smoking status stop date: 2006 alcohol intake: never substance use type: denies use current occupational status: employed Travel in the last 8 weeks?: Inside the [place] household members: spouse and children housing: house Have you lived/traveled outside US in past 30 days?: No Contact w/someone who lives/traveled outside US past 30 days?: No Exposure to someone with infectious disease in past 14 days?: No Do you have a fever (greater than 100.4 F or 38 C)?: No Have you tested positive for COVID-19?: No Exposed to someone with COVID-19 in past 14 days?: No Do you have a sore throat?: No Do you have a cough?: No Do you have any weakness?: No Are you experiencing any nausea/vomitting?: No Do you have any diarrhea?: No Are you experiencing any unusual bleeding?: No Do you have any muscle aches/pain?: No Do you have any abdominal pain?: No Are you experiencing loss of taste or smell?: No Review of Systems Review of Systems Review of systems:: pertinent systems reviewed and negative unless documented below *Genitourinary Genitourinary: Reports abnormal vaginal bleeding Meds Home Medications and Allergies Home Medications ?Medication ?Instructions ?Recorded ?Confirmed ?Type norethindrone acetate 5 mg tablet 5 mg PO BID #60 tabs 11/09/24 01/04/25 Rx ([facility]) New Prescriptions to Start Prescriptions: Allergies Allergy/AdvReac Type Severity Reaction Status Date / Time Penicillins Allergy Hives Verified 01/04/25 06:20 Exam Data for Last 24 hours Vital signs and Labs for Last 24 Hours: Temp Pulse Resp BP Pulse Ox O2 Del Method 98.0 F 74 18 136/71 100 Room Air 01/04/25 06:25 01/04/25 06:25 01/04/25 06:25 01/04/25 06:25 01/04/25 06:25 01/04/25 06:25 Constitutional Constitutional: no acute distress and cooperative *Routine HEENT Exam Head: Present normocephalic and atraumatic Eye: Absent conjunctivae pink ENT: Present mucous membranes moist *Routine Neck Exam Neck: Present full ROM *Routine Respiratory Exam Respiratory: Present CTA bilaterally and normal respiratory effort *Routine Cardiovascular Exam Cardiovascular: Present RRR *Routine Abdominal Exam Abdominal: Present soft, normoactive bowel sounds and obese; Absent tenderness or distended *Routine Rectal Exam Rectal:: deferred *Routine Genitalia Exam Genitalia:: normal female *Routine Extremities Exam Extremities: Present full ROM; Absent edema *Routine Neurological Exam Neurological: Present alert, moving all extremities and normal speech Routine Psychiatric Exam Psychiatric: Present normal affect and cooperative Assessment and Plan *Assessment and plan (1) Abnormal uterine bleeding: Status: Acute Category: Medical Code(s): N93.9 - Abnormal uterine and vaginal bleeding, unspecified (2) Endometrial thickening on ultrasound: Status: Acute Category: Medical Code(s): R93.89 - Abnormal findings on diagnostic imaging of other specified body str uctures (3) History of bilateral tubal ligation: Problem Comment: with last Status: Acute Category: Surgical Code(s): Z98.51 - Tubal ligation status (4) History of : Problem Comment: x3 Status: Acute Category: Surgical Code(s): Z98.891 - History of uterine scar from previous surgery Plan Admit to [facility] for scheduled MALGORZATA, BSO. Reviewed risks, benefits, alternatives, expectations and possible complications of surgery. All questions addressed and answered. She voiced understanding of risks and possible complications. Consent form signed Proceed with MALGORZATA, BSO
[2025-01-04] MEDS: METRONIDAZ/SOD CHL 500 MG/100 ML PIGGYBACK 100 MG IV (07:58)
[2025-01-04] MEDS: CLINDAMYCIN PHOSPHATE/D5W 900 MG/50 ML PIGGYBACK 100 MG IV ×3 (07:58→23:54)
[2025-01-04] MEDS: GENTAMICIN SULFATE IV (08:39)
[2025-01-04] MEDS: SODIUM CHLORIDE 0.9% IV (08:39)
--- NOTE | 2025-01-04 08:45 | HMH.PHAINT1 ---
Pharmacy Intervention Comments: MEDICATION RECONCILIATION COMPLETED ON PATIENT USING EXTERNAL FILL HISTORY FROM PHARMACY. -AVANI SANTIAGO, ASIAD
--- NOTE | 2025-01-04 09:38 | EXP.ANES.I ---
[facility] Anesthesia Record Part I Anesthesia Record I Intake, IV Amount: 1,000 Hydration: Adequate Estimated blood loss (mL): 350 Urine output (mL): 150 Blood Pressure: 135/78 SaO2: 98 Pulse Rate: 68 Airway Patency: Patent Respiratory Rate: 18 Temperature: 98.7 F Patient is:: Awake and Stable Stable to PACU at:: 09:40
--- NOTE | 2025-01-04 09:48 | P.OP_ITS ---
Date of procedure: 01/04/25 Pre-op Diagnosis:: 1. Abnormal uterine bleeding 2. Enlarged uterus on ultrasound 3. History of x 3 4. History of tubal ligation with last Post-op Diagnosis:: 1. Abnormal uterine bleeding 2. Enlarged uterus on ultrasound 3. History of x 3 4. History of tubal ligation with last Procedure performed:: Total Abdominal Hysterectomy, bilateral oophorectomy, bilateral salpingectomy Surgeon:: Nanette Samaniego DO Lead Java Software Engineer(s):: Gustabo Carroll MD COMPOUNDER HELPER:: Dana Rosario Anesthesia: GETA Estimated blood loss (mL): 350 Clinical Note:: Mrs Nedra Mitchell is a 49 yo [id number] who presents to [facility] for scheduled surgery. She complains of abnormal uterine bleeding since June. She is taking Norethindrone and admits to continued bleeding. Sometimes bleeding will increase while taking the Norethindrone and she will increase her dose temporarily until bleeding lightens again. She had a D&C August 25/2025. Pathology demonstrated acute and chronic endometritis. Negative for hyperplasia and malignancy. She completed course of doxcycline. She desired endometrial ablation. On 10/26 she underwent hysteroscopy, dilation and curettage, attempted Novasure endometrial ablation. Novasure device would not activate secondary to large cavity. She is still bleeding. Bleeding is managed with Norethindrone. She is requesting definitive surgical intervention with hysterectomy. Pelvic ultrasound 08/05/24 demonstrated anteverted, enlarged uterus. The endometrium is heterogenous and markedly thickened. There are irregular areas along the basalis of the endometrium. Within the anterior myometrium are calcifications with posterior shadowing. 2. The endometrium is suspicious for endometrial carcinoma or hyperplasia. Suggest endometrial sampling. 3. Left and right ovary were not visualized. Transabdominal approach was performed but the ovaries could not be seen. 4. There are 2 small, simple hypoechoic areas in the left adnexa that could be hydatid of Morgagni. 5. No fluid in the cul-de-sac. History of x 3. History of tubal ligation with last . Operative findings:: 1. On laparotomy, grossly normal appearing bowel, omentum, portions of bilateral fallopian tubes and ovaries. Adhesions between bladder and lower uterine segment present. Uterus was enlarged and boggy. No evidence of endometriosis. Operative note:: Discussed risks, benefits, alternatives, expectations and possible complications of surgery. All questions addressed and answered. Patient wished to proceed with surgery. Patient was wheeled back to the operating room and placed under general anesthesia without difficulty. The patient received Clindamycin, Gentamicin and Metronidazole preoperatively. SCDs in place. Coffey catheter was inserted and draining clear urine prior to the start of the procedure. Vagina was prepped with betadine. Then she was placed in the supine position. She was prepped and draped in normal sterile fashion. Attention was then turned to the abdomen. A Pfannenstiel skin incision was made 2 cm above pubic symphysis along prior Pfannenstiel scar. This was carried through to underlying layer of fascia. Fascia was incised in midline, extended laterally with Valdez scissors. Superior aspect of fascial incision was grasped with two Minerva clamps, elevated up, and rectus muscle dissected off bluntly and sharply with Valdez scissors. The retcus muscle was then in the midline and the peritoneum was entered bluntly with a digit. Peritoneal incision was then extended superiorly and inferiorly with good visualization of the bladder. O'Reilly O'cotton retractor was placed in the abdominal incision. Bowel was packed cephalad with warm moist laparotomy sponges. Bilateral uterine cornua grasped with Kristie clamps. Uterus was deviated to the right, left round ligament was placed on stretch and incised between two clamps. The distal stump of the roung ligament was suture ligated with 0 Vicryl suture. The proximal stump was held with a Minerva clamp. The leaves of the broad ligament were opened both anteriorly and posteriorly. The uterus was retracted cephalad. The anterior leaf of the broad ligament was opened down to the vesicouterine fold. Same procedure was carried out on the contralateral side. The vesicouterine peritoneal fold was elevated, and the bladder was dissected off of the lower uterine segment with sharp and blunt dissection. The uterus was retracted toward the pubic symphysis and deviated to right side. A finger was inserted through the peritoneum of the posterior leaf of the broad ligament under the suspensory ligament of the ovary and fallopian tube. The infundibulopelvic ligament is undermined with finger dissection. The infundibulopelvic ligament was triple-clamped and incised between the first and second clamps. The proximal side of the infundibulopelvic ligament was doubly suture ligated with a 0 Vicryl suture. A defect was made in the mesosalpinx of the Fallopian tube adjacent to the cornual area. Same procedure was carried out on the contralateral side. The vesicouterine peritoneal fold was elevated, and the bladder was dissected off of the lower uterine segment with sharp and blunt dissection. The uterus was retracted cephalad and deviated to the right side. Uterine arteries were skeletonized. Three curved Minerva clamps were placed at the junction of the lower uterine segment on the uterine vessels. An incision was made between the upper clamp and two lower clamps. The stump was doubly suture ligated with 0 Vicryl. The same procedure was carried out on the contralateral side. The uterus was held in traction in the cephalad position and pubovescial cervical fascia was dissected inferiorly. Two straight Minerva clamps were applied to the cardinal ligament. Cardinal ligament was incised between the two clamps and the distal stump was ligated with 0 Vicryl suture. The same procedure was carried out on the contralateral side. Bilateral uterosacral ligaments were clamped between straight Minerva clamps, incised, and suture ligated with 0 Vicryl suture. The lower uterine segment and upper vagina were palpated between the thumb and first finger of the surgeon's hand to ensure that the ligaments have been completely incised. The vagina was entered with Valdez scissors and cut circumferentially. The uterus, portions of bilateral fallopian tubes and bilateral ovaries were removed. The edges of the vagina were held by curved Glenner forceps. Vaginal cuff was closed in a running locking manner with 1 Vicryl suture. Pelvis was irrigated. Hemostasis was noted. Surgicel powder was applied over vaginal cuff and bilateral pedicles. Hemostasis remained. At this point all instruments and sponges were removed from the pelvis.? The peritoneum was grasped with Kristie clamps x 3. The peritoneum was reapproximated with 0 Vicryl suture in a running stitch. The corners of the fascia were grasped with Minerva clamps, and the fascia was reapproximated with two # 1 Vicryl suture overlapped to the right of midline. The subcutaneous tissue was reapproximated with 2-0 Vicryl. The skin was reapproximated with 2-0 Insorb janet. Steri strips and Telfa were placed over closed Pfannenstiel skin incision. Patient awoke from anesthesia without difficulty and was transferred to the recovery room in stable condition. Condition: stable Disposition: floor Specimens:: 1. Uterus, cervix, bilateral ovaries and portions of bilateral fallopian tubes Complications:: None
[2025-01-04] MEDS: KETOROLAC 30MG/ML VIAL 30 MG IV ×3 (09:53→20:39)
[2025-01-04] MEDS: MORPHINE 2MG/ML SYRINGE 2 MG IV (10:04)
[2025-01-04] MEDS: ESTRADIOL VALERATE 20 MG/ML VIAL 30 MG IM (10:10)
[2025-01-04] MEDS: LACTATED RINGERS 1000ML 1,000 ML 125 ML IV (12:18)
[2025-01-04 14:12] LABS: Microscopic,Cath URINE MICROSCOPIC (MICROSCOPIC)
[2025-01-04] MEDS: SODIUM CHLORIDE 0.9% 10ML FLUSH SYRINGE 10 ML IV (15:18)
--- NOTE | 2025-01-04 15:33 | EXP.ANES.II ---
[facility] Anesthesia Record Part II Anesthesia Record Part II Discharge Time: 10:00 Destination: Obstetric PACU nurse assessment reviewed?: Yes Patient Condition:: Good Anesthesia Complications:: None Swallowing reflex intact?: Yes Airway Patency: Patent Cyanosis?: No Blood Pressure: 126/71 SaO2: 100 Respiratory Rate: 17 Pulse Rate: 73 Temperature: 98.7 F Mental Status: Alert & Oriented Pain level:: 4 Nausea and/or vomitting:: None Intake, IV Amount: 0 Hydration: Adequate
[2025-01-04 16:10] LABS: Appearance,Urine/Cath CLEAR (Clear); Bilirubin,Cath Negative (Negative); Blood, Urine/Cath 1+ (Negative); Color,Urine/Cath YELLOW (Yellow); Glucose,Urine/Cath (UA) Negative (Negative); Ketones,Urine/Cath Negative (Negative); Leukocyte Esterase,Cath Negative (Negative); Nitrate,Cath Negative (Negative); PH,Urine/Cath 6.5 (5.0-8.5); Protein,Urine/Cath TRACE (Negative); Specific Gravity, Urine/Cath 1.015 (1.005-1.030); Urobilinogen,Cath 0.2 EU/dl (0.2)
[2025-01-04 16:27] LABS: Bacteria,Urine/Cath TRACE /lpf; Mucus,Urine/Cath 1+ /lpf; Squamous Epithelial Ur./Cath Occasional #/hpf (0-5); WBC,Urine/Cath Occasional #/hpf (0-3)
--- NOTE | 2025-01-04 18:23 | PC.NURSE ---
Pt. reports passing flatus. Pt. denies needs, resting comfortably in bed.
--- NOTE | 2025-01-04 19:00 | PC.NURSE ---
Report received from Han Schneider RN. Pt is in her room, sitting up at the table and eating a snack and visiting with her children. Pt denies any current needs or concerns.
[2025-01-04] MEDS: POLYETHYLENE GLYCOL 3350 17 GM PACKET PO (20:40)
[2025-01-04] MEDS: OXYCODONE 5MG IMMEDIATE RELEASE TABLET 5 MG PO (23:58)
[2025-01-05] VITALS: BP 115/49; PULSE 61; RESP 14; TEMP 36.7; O2SAT 100
[2025-01-05] MEDS: KETOROLAC 30MG/ML VIAL 30 MG IV ×2 (03:08→09:13)
[2025-01-05] MEDS: ACETAMINOPHEN 500MG TAB 1000 MG PO ×2 (03:14→09:13)
[2025-01-05 03:28] VITALS: BP 113/44; PULSE 88; RESP 14; TEMP 36.7; O2SAT 97
[2025-01-05 05:40] LABS: Hematocrit 30.3 % (37.0-47.0); Hemoglobin 9.7 g/dL (12.2-16.2); Immature Granulocytes % 0.3 %; Mean Corpuscular HGB Conc 32.0 g/dL (31.8-35.4); Mean Corpuscular Hemoglobin 27.2 pg (27.0-31.2); Mean Corpuscular Volume 85.1 fl (81-99); Nucleated Red Blood Cells % 0 %; Platelet Count 248 K/mm3 (142-424); Red Blood Count 3.56 M/mm3 (4.20-5.40); Red Cell Distribution Width-SD 43.8 fL; White Blood Count 10.6 K/mm3 (4.8-10.8)
[2025-01-05 05:48] LABS: Chloride 107 mmol/L (98-107)
[2025-01-05 05:49] LABS: Albumin Level 2.9 g/dl (3.5-5.0); Potassium 3.9 mmoL/L (3.5-5.1); Sodium 135 mmol/L (136-145)
[2025-01-05 05:51] LABS: Blood Urea Nitrogen 11 mg/dl (7-17); Creatinine Clearance Estimated 196 mL/min (50-200); Creatinine,Serum 0.70 mg/dl (0.52-1.04); Estimated Glomerular Filt Rate 90 ml/min (>60); GFR (African American) 109 ML/MIN (>60)
[2025-01-05 05:52] LABS: Alanine Aminotransferase 22 U/L (12-78); Albumin/Globulin Ratio 1.0 (1.1-1.8); Alkaline Phosphatase 41 U/L (38-126); Anion Gap 7.9 mEq/L (5-15); Aspartate Amino Transferase 22 U/L (14-36); Bilirubin,Total 0.5 mg/dl (0.2-1.3); Calcium 7.7 mg/dl (8.4-10.2); Carbon Dioxide 24 mmol/L (22.0-30.0); Globulin 2.8 g/dL (1.3-3.2); Glucose 105 mg/dl (74-100); Total Protein,Serum 5.7 g/dl (6.3-8.2)
[2025-01-05 08:51] VITALS: O2SAT 99
[2025-01-05 08:54] VITALS: BP 117/86; PULSE 74; RESP 16; TEMP 36.7; O2SAT 99
[2025-01-05] MEDS: POLYETHYLENE GLYCOL 3350 17 GM PACKET PO (09:12)
--- NOTE | 2025-01-05 10:22 | P.DS_ITS ---
General Admission date:: 01/04/25 Discharge date: 01/05/25 HPI HPI HPI: Mrs Nedra Mitchell is a 49 yo [id number] who presents to [facility] [place] for scheduled surgery. She complains of abnormal uterine bleeding since June. She is taking Norethindrone and admits to continued bleeding. Sometimes bleeding will increase while taking the Norethindrone and she will increase her dose temporarily until bleeding lightens again. She had a D&C August 25/2025. Pathology demonstrated acute and chronic endometritis. Negative for hyperplasia and malignancy. She completed course of doxcycline. She desired endometrial ablation. On 10/26 she underwent hysteroscopy, dilation and curettage, attempted Novasure endometrial ablation. Novasure device would not activate secondary to large cavity. She is still bleeding. Bleeding is managed with Norethindrone. She is requesting definitive surgical intervention with hysterectomy. Pelvic ultrasound 08/05/24 demonstrated anteverted, enlarged uterus. The endometrium is heterogenous and markedly thickened. There are irregular areas along the basalis of the endometrium. Within the anterior myometrium are calcifications with posterior shadowing. 2. The endometrium is suspicious for endometrial carcinoma or hyperplasia. Suggest endometrial sampling. 3. Left and right ovary were not visualized. Transabdominal approach was performed but the ovaries could not be seen. 4. There are 2 small, simple hypoechoic areas in the left adnexa that could be hydatid of Morgagni. 5. No fluid in the cul-de-sac. History of x 3. History of tubal ligation with last . Hospital Course Hospital Course Hospital Course: On January 04, 2025 she underwent a total abdominal hysterectomy and bilateral salpingo-oophorectomy through a Pfannenstiel incision. She has done well postoperatively and has remained afebrile throughout her hospitalization. She is eating and drinking and ambulating. She is voiding on her own. She is passing gas. She denies shortness of breath, chest pain or calf tenderness. She will be discharged home today to follow-up with Dr. Samaniego in approximately 2 weeks time. She will continue with her home medications. She is given a prescription for oxycodone. She was given the usual instructions with respect to limiting her activity, driving and sexual activity. She was given instructions with respect to wound care. Her condition on discharge is stable and improved. Exam Data for Last 24 hours Vital signs and Labs for Last 24 Hours: Temp Pulse Resp BP Pulse Ox O2 Del Method 98.0 F 74 16 117/86 99 Room Air 01/05/25 08:54 01/05/25 08:54 01/05/25 08:54 01/05/25 08:54 01/05/25 08:54 01/05/25 10:17 Laboratory Results - last 24 hr 01/04/25 07:35: Urine Color Yellow, Urine Appearance Clear, Urine pH 6.5, Ur Specific [place] 1.015, Urine Protein Trace, Urine Glucose (UA) Negative, Urine Ketones Negative, Urine Blood 1+, Urine Nitrate Negative, Urine Bilirubin Negat jeff, Urine Urobilinogen 0.2, Ur Leukocyte Esterase Negative, Urine RBC 3-5, Urine WBC Occasional, Ur Squamous Epith Cells Occasional, Urine Bacteria Trace 01/05/25 05:06: WBC 10.6, RBC 3.56 L, Hgb 9.7 L, Hct 30.3 L, MCV 85.1, MCH 27.2, MCHC 32.0, RDW 13.9, Plt Count 248, MPV 10.2, Neut % (Auto) 65.7, Lymph % (Auto) 24.7, Arroyo % (Auto) 9.0, Eos % (Auto) 0.1, Baso % (Auto) 0.2, Neut # (Auto) 7.0, Lymph # (Auto) 2.6, Arroyo # (Auto) 1.0, Eos # (Auto) 0.0, Baso # (Auto) 0.0, Sodium 135 L, Potassium 3.9, Chloride 107, Carbon Dioxide 24, Anion Gap 7.9, BUN 11, Creatinine 0.70, Estimated Creat Clear 196, Estimated GFR 90, Est GFR ( Amer) 109, Glucose 105 H, Calcium 7.7 L, Total Bilirubin 0.5, AST 22, ALT 22, Alkaline Phosphatase 41, Total Protein 5.7 L, Albumin 2.9 L, Globulin 2.8, Albumin/Globulin Ratio 1.0 L I & O for Last 24 hours: Intake & Output 01/02/25 01/03/25 01/04/25 01/05/25 11:59 11:59 11:59 11:59 Intake Total 2261.5 / 2261.5 645.833 / 645.833 Output Total 500 / 500 1999 Balance 1761.5 / 1761.5 -1354.167 / -1354.167 Constitutional Constitutional: no acute distress *Routine HEENT Exam Head: Present normocephalic ENT: Present mucous membranes moist *Routine Neck Exam Neck: Present full ROM *Routine Respiratory Exam Respiratory: Present CTA bilaterally and normal respiratory effort; Absent accessory muscle use *Routine Cardiovascular Exam Cardiovascular: Present RRR *Routine Abdominal Exam Abdominal: Present soft and normoactive bowel sounds; Absent tenderness or distended *Routine Rectal Exam Patient deferred: visual exam and digital exam *Routine Exam Patient deferred: external exam Results Data Completed and Pending Labs on day of discharge: Labs from last 24 hours 01/05/25 01/04/25 05:06 07:35 WBC 10.6 RBC 3.56 L Hgb 9.7 L Hct 30.3 L MCV 85.1 MCH 27.2 MCHC 32.0 RDW 13.9 Plt Count 248 MPV 10.2 Neut % (Auto) 65.7 Lymph % (Auto) 24.7 Arroyo % (Auto) 9.0 Eos % (Auto) 0.1 Baso % (Auto) 0.2 Neut # (Auto) 7.0 Lymph # (Auto) 2.6 Arroyo # (Auto) 1.0 Eos # (Auto) 0.0 Baso # (Auto) 0.0 Sodium 135 L Potassium 3.9 Chloride 107 Carbon Dioxide 24 Anion Gap 7.9 BUN 11 Creatinine 0.70 Estimated Creat Clear 196 Estimated GFR 90 Est GFR ( Amer) 109 Glucose 105 H Calcium 7.7 L Total Bilirubin 0.5 AST 22 ALT 22 Alkaline Phosphatase 41 Total Protein 5.7 L Albumin 2.9 L Globulin 2.8 Albumin/Globulin Ratio 1.0 L Urine Color Yellow Urine Appearance Clear Urine pH 6.5 Ur Specific [place] 1.015 Urine Protein Trace Urine Glucose (UA) Negative Urine Ketones Negative Urine Blood 1+ Urine Nitrate Negative Urine Bilirubin Negative Urine Urobilinogen 0.2 Ur Leukocyte Esterase Negative Urine RBC 3-5 Urine WBC Occasional Ur Squamous Epith Cells Occasional Urine Bacteria Trace DS: Diagnosis Discharge Diagnosis (1) Abnormal uterine bleeding: Status: Acute Code(s): N93.9 - Abnormal uterine and vaginal bleeding, unspecified (2) Endometrial thickening on ultrasound: Status: Acute Code(s): R93.89 - Abnormal findings on diagnostic imaging of other specified body structures (3) History of bilateral tubal ligation: Status: Acute Code(s): Z98.51 - Tubal ligation status Problem details: with last (4) History of : Status: Acute Code(s): Z98.891 - History of uterine scar from previous surgery Problem details: x3 Meds Home Medications and Allergies Home Medications ?Medication ?Instructions ?Recorded ?Confirmed ?Type ibuprofen 800 mg tablet 800 mg PO Q8H PRN pain #20 t abs 01/04/25 Rx oxycodone 5 mg tablet 5 mg PO Q4HP PRN Moderate Pa in 01/04/25 Rx (4-6) #20 tabs New Prescriptions to Start Prescriptions: ibuprofen Nanette Samaniego oxycodone Nanette Samaniego Allergies Allergy/AdvReac Type Severity Reaction Status Date / Time Penicillins Allergy Hives Verified 01/04/25 06:20 Discharge Plan Disposition Patient Disposition: Home, Self-Care Condition: Good Discharge Order Discharge Orders: Discharge Order (Routine); Ordered 01/05/25 Ordered By: Gustabo Carroll Follow up Plan Follow up with: Nanette Samaniego DO [Staff Physician, INTERNAL AUDIT MANAGER] - 01/15/25 10:00 am Prescriptions/Medication Reconciliation: New oxycodone 5 mg Tablet 5 mg PO Q4HP PRN (Reason: Moderate Pain (4-6)) Qty: 20 0RF ibuprofen 800 mg tablet 800 mg PO Q8H PRN (Reason: pain) Qty: 20 0RF Discontinued norethindrone acetate [Gallifrey] 5 mg tablet 5 mg PO BID Qty: 60 2RF Problem Reconciliation Problems Reviewed?: Yes Patient Discharge Instructions ACTIVITY: Limited activity DIET: continue same diet and regular diet Additional Instructions: Discharge instructions following hysterectomy: 1. Take 800 mg Ibuprofen every 8 hours, Tylenol 1000 mg every 6 hours and Oxy 5 mg every 4 hours for the next two days. Then take medication as needed for pain. 2. Take Miralax twice a day for the next 3 days then take as needed to keep regular bowel movements. Avoid constipation 3. Nothing in the vagina for 6 weeks - no intercourse, douching or tampons. No tub baths/hot tubs or swimming pools 4. No lifting anything heavier than 5 pounds for 6 weeks 5. Reasons to go to the ED or call On-Call doctor - fever (greater than 100.4) - chest pain or shortness of breath - lower leg/calf swelling, redness or pain. This could be a sign of a blood clot - heavy vaginal bleeding - vaginal discharge (malodorous and/or purulent) Nanette Samaniego DO [facility] [phone] Patient Instructions: How to Care for a Surgical Wound, DI for Hysterectomy, DI for Postoperative Pain Print Language: Cymro Providers Primary Care Provider: Stephanie Canales [place] Provider: Nanette Samaniego Attending Provider: Nanette Samaniego
--- OUTSIDE RECORDS SUMMARY | 2025-01-05 10:28 | XMS_ITS | Clinical Summary ---
[facility] Address [address] [place] [address] Care Team Providers Care Lens Generating Machine Tender Name Role Phone Provider, No Known Primary [...] Most Recently Relevant to Health Maintenance Insurance [employer] Care Teams Lens Generating Machine Tender Relationship Specialty Start Date [place], [place] [address] PCP - General 10/28/14
--- NOTE | 2025-01-05 10:56 | PC.NURSE ---
Discahrge education provided, questions encouraged and answered. Pt. v/u. Nurse offered wheelchair for discharge, pt agreeable. at bedside.
== END 2025-01-05 11:00 | disposition home or self-care (01) | DRG 743 ==
LOC: OB 17:24
PROVIDERS: Admitting Provider Obstetrics & Gynecology; PCP Nurse Practitioner Family; Visit Provider Obstetrics & Gynecology
PROC: 0UT90ZZ Resection of Uterus, Open Approach (ICD-10-PCS; CPT 58150; principal; 2025-01-04 07:30)
DX: N93.9 Abnormal uterine and vaginal bleeding, unspecified (principal); N71.1 Chronic inflammatory disease of uterus; R93.89 Abnormal findings on diagnostic imaging of other specified body structures; Z98.891 History of uterine scar from previous surgery; Z98.51 Tubal ligation status; Z87.891 Personal history of nicotine dependence; Z79.899 Other long term (current) drug therapy; Z88.0 Allergy status to penicillin
CPT/HCPCS: 36415; 51702; 80053; 81001; 85025; 86850; 96372; 96374; J0665; J0666; J0736; J1100; J1200; J1380; J1580; J1836; J1885; J2003; J2250; J2270; J2405; J2704; J3010; J7120